=== PATIENT | male | born 2000 | race African-American/Black ===

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

== ENCOUNTER 2025-05-06 20:47 | Emergency (ER) | payer OTHER ==
[~2025-05-06] VITALS: Ht 175.3 cm; Wt 112.0 kg
[2025-05-06 21:04] VITALS: O2SAT 99
[2025-05-06] MEDS: KETOROLAC 15MG/ML VIAL IM ONE (23:17)
[2025-05-06] MEDS: LIDOCAINE 5% PATCH TOP SCH (23:17)
[2025-05-06] MEDS ORDERED: LIDO-53 TP (23:32)
[2025-05-06] MEDS ORDERED: NAPR-1176 MT (23:32)
[2025-05-06 23:58] VITALS: BP 127/83; PULSE 80; RESP 15; TEMP 36.8; O2SAT 100
== END 2025-05-06 23:56 | disposition home or self-care (01) ==
LOC: ER 20:47
DX: S20.219A Contusion of unspecified front wall of thorax, initial encounter (principal); F12.90 Cannabis use, unspecified, uncomplicated; J45.909 Unspecified asthma, uncomplicated; Z79.1 Long term (current) use of non-steroidal anti-inflammatories (NSAID); V89.2XXA Person injured in unspecified motor-vehicle accident, traffic, initial encounter; Y93.89 Activity, other specified; Y92.410 Unspecified street and highway as the place of occurrence of the external cause; Y99.8 Other external cause status
CPT/HCPCS: 99283; 71045; 96372; J1885